=== PATIENT | male | born 1970 | race Caucasian/White ===

== ENCOUNTER 2024-09-21 11:49 | Emergency (ER) | payer BC, SELFPAY ==
[2024-09-21 11:50] VITALS: BP 163/102
[2024-09-21 12:08] LABS: % Basophils 0.4 % (0-2); % Eosinophils 1.2 % (0-6); % Immature Granulocytes 0.4 % (0-0.5); % Lymphocytes 13.7 % (20.5-51.1); % Monocytes 8.3 % (1.7-9.3); Absolute Eosinophils 0.1 10^3/uL (0-0.7); Absolute Lymphocytes 1.2 10^3/uL (1.2-3.4); Absolute Monocytes 0.7 10^3/uL (0.1-0.6); Absolute Neutrophils 6.5 10^3/uL (1.4-6.5); Hematocrit 46.5 % (39.0-52.0); Hemoglobin 15.9 g/dL (13.0-18.0); Mean Corp Hgb Conc. 34.2 g/dL (33.0-37.0); Mean Corpuscular Hgb 32.1 pg (27.0-31.0); Mean Corpuscular Volume 93.8 fL (80.0-94.0); Mean Platelet Volume 10.2 fL (7.4-10.4); Nucleated Red Blood Cells % 0 % (-); Platelet Count 229 10^3/uL (130-400); Red Blood Cell Count 4.96 10^6/uL (4.70-6.10); Red Cell Dist. Width 13.2 % (11.5-14.5); White Blood Cell Count 8.6 10^3/uL (4.8-10.8)
[2024-09-21 12:36] LABS: ALT (SGPT) 28 U/L (0-50); AST (SGOT) 24 U/L (17-59); Albumin 4.5 g/dl (3.5-5.0); Alkaline Phosphatase 37 U/L (38-126); Blood Urea Nitrogen 14 mg/dl (9-20); Calcium 9.1 mg/dl (8.4-10.2); Carbon Dioxide 27 mmol/L (22-30); Chloride 106 mmol/L (98-107); Glucose 91 mg/dl (70-99); Potassium 4.4 mmol/L (3.5-5.1); Sodium 139 mmol/L (135-145); Total Bilirubin 0.8 mg/dl (0.2-1.3); Total Protein 6.9 g/dl (6.3-8.2); eGFR > 60.00
[2024-09-21 12:48] LABS: Troponin I < 0.012 ng/ml
[2024-09-21 13:43] VITALS: BP 143/108
[2024-09-21 15:47] VITALS: BP 136/98
[2024-09-21 16:00] VITALS: BP 145/103
--- NOTE | 2024-09-21 16:27 | ED.GENMED ---
History of Present Illness
General
Chief Complaint: Cardiac Symptoms
Source: patient and family
Exam Limitations: none
Time Seen by Provider: 09/21/24 15:54
Nursing documentation reviewed up to this point in time: agreed with
History of Present Illness
History of Present Illness:
Patient currently on day 5 of Valtrex for possible shingles, presents to ED secondary to continual left thigh pain, which now has spread to multiple joints and muscles. Patient initially had rash noted over left lower back/buttock which now has
resolved. Denies fever or chills. Denies nausea or vomiting. Patient has been taking Tylenol/Motrin with mild relief in symptoms. Of note, patient was admitted to the hospital 5 years ago and treated for bacteremia with multiple abscesses.
Patient states that the pain that he he is having currently, is reminding him of what he experienced back then.
Past History
Past History
ED Past Medical History: Asthma, Other (kidney stones) and Other (Previous migraines)
ED Past Surgical History: None
Social History
Tobacco: Non-smoker
Alcohol: None
Drug: None
Personal:
Living: with family
Employment: Employed
Family History
Family History: Other
Review of Systems
Review of Systems
Allergies reviewed?: Yes
All Other Systems: ROS reviewed and negative except as documented in HPI and ROS
Constitutional: Reports no symptoms; Denies fever or chills
Cardiac: Reports no symptoms
ABD/GI: Reports no symptoms; Denies vomiting or diarrhea
: Reports no symptoms
Musculoskeletal: Reports joint pain and muscle pain
Skin: Reports rash
Neurological: Reports no symptoms; Denies dizzy or weakness
Phy Exam
Physical Exam
Physical Exam:
Physical Exam
General: mild distress, not acutely ill. afebrile
Head: nc/at. eomi
Neck: supple. no meningeal signs.
Heart: s1/s2 regular rate and rhythm
Lungs: no acute respiratory distress. clear bilaterally
Abdomen: normal bowel sounds. not tender.
Neuro: alert and oriented x 3. no focal neurological deficits
Skin: no rash
Psychiatric: well kept. interactive and cooperative
Extremities: no edema. no calf tenderness.
Course
Orders/Labs/Results
Orders:
Orders
09/21/24 11:54
Electrocardiogram (*1) Urgent
Reason for Study: Chest Pain
EKG- Treatment ONCE
CR Chest - 2 Views Urgent
Comment:
Reason For Exam: chest tightness
09/21/24 11:59
Complete Blood Count/With Diff Urgent
Comprehensive Metabolic Panel Urgent
Creatine Phosphokinase Urgent
Comment: ADD ON
Lyme Progressive Urgent
Comment: ADD ON
Magnesium Urgent
Comment: ADD ON
Troponin I Urgent
09/21/24 16:18
Add On- LAB Urgent
Tests Added?: magnesium, CPK, lyme progressive
09/21/24 16:20
0.9% Sodium Chloride 1000 ml [Nss] 1,000 ml IV BOLUS
Ketorolac [Toradol] 15 mg IV NOW STA
09/21/24 16:41
Ehrlichia/Anaplasma by PCR [S] Urgent
Babesia Smear [Blood Parasites] Urgent
POLLY Source: Blood/Venous
Specimen Description:
Blood Culture Q30M
POLLY Source: Blood/Venous
Specimen Description:
Blood Culture Q30M
POLLY Source: Blood/Venous
Specimen Description:
09/21/24 18:01
Amoxicillin [Amoxil] 500 mg PO NOW STA
Abnormal Lab Results
09/21/24
11:59
MCH 32.1 H pg
(27.0-31.0)
Absolute Monos (auto) 0.7 H 10^3/uL
(0.1-0.6)
Neutrophils % 76.0 H %
(42.2-75.2)
Lymphocytes % 13.7 L %
(20.5-51.1)
Alkaline Phosphatase 37 L U/L
(38-126)
09/21/24 11:59
09/21/24 11:59
Vital Signs
Initial and Last Documented VS:
Initial Vital Signs
Temp Pulse Resp BP Pulse Ox
98.5 F 81 16 163/102 98
09/21/24 11:50 09/21/24 11:50 09/21/24 11:50 09/21/24 11:50 09/21/24 11:50
Last Documented Vital Signs
Temp Pulse Resp BP Pulse Ox
98.5 F 67 21 148/101 97
09/21/24 11:50 09/21/24 17:45 09/21/24 17:00 09/21/24 17:00 09/21/24 16:28
MDM/Problems Addressed
MDM/Problems Addressed:
Patient with an unremarkable workup in ED. In addition, patient remains afebrile, hemodynamically stable, and nontoxic-appearing during observation. Patient's presenting symptoms, however, are concerning for potential tickborne illness, i.e. Lyme
disease, with nonspecific rash now having resolved. As such, with patient's progressing symptoms, decision made to start patient on amoxicillin, for potential Lyme disease.
Blood culture and other tickborne illness testing pending, at time of discharge. Patient advised to take ibuprofen/Tylenol for pain control, as well as PCP follow-up. Patient recommended to be return to ED with worsening symptoms, i.e.
fever/worsening pain. Pt agrees with treatment plan
*Pulse Oximetry
SaO2: 97
Oxygen Mode of Delivery: Room air
Patient hypoxic: no
*EKG
Interpreted by ED Provider?: Yes
EKG Intrepretation Date: 09/21/24
Heart Rate: 84
Rate: normal
Rhythm: sinus
Corona: normal axis
*Critical Care Note
Total Time (30-74mins, 75-104mins- exclusive of procedures): Not Applicable
ED Attending Note
-
Portions of this chart may have been created with voice recognition software.� Occasional wrong word or��sound alike� substitutions may have occurred due to the inherent limitations of voice recognition software.
Discharge Plan
Departure
Patient Disposition: Home (Routine Discharge)
Date of Disposition: 09/21/24
Time of Disposition: 18:06
Patient with high blood pressure during this ER visit?: Yes
Discharge Problem:
Myalgia
Instructions: Muscle, joint, and bone pain - Discharge instructions
Prescriptions:
New
amoxicillin 500 mg capsule
500 mg PO Q8H Qty: 41 0RF
No Action
calcium carbonate [Oyster Shell Calcium 500] 500 MG tablet
500 mg PO DAILYPRN PRN (Reason: dehydration)
ibuprofen 200 MG tablet
600 mg PO Q4HPRN PRN (Reason: mild pain,fever)
omega [id number]-fish oil [Fish Oil] 1 EACH capsule
3 ea PO DAILY
tetrahydrozoline [Eye Drops (tetrahydrozoline)] 1 DROP drops
1 drp BOTH EYES DAILYPRN PRN (Reason: eye irritation)
sulfamethoxazole-trimethoprim 1 TABLET tablet
1 tab PO BID Qty: 84 0RF
oxycodone 5 MG tablet
5 mg PO Q4HPRN PRN (Reason: moderate pain) Qty: 60 0RF
ertapenem 1,000 MG/10 ML recon soln
1,000 mg IV Q24H 0RF
Lactobacillus acidoph-L.bulgar [Floranex] 1 EACH tablet
1 ea PO DAILY Qty: 30 0RF
Referrals:
Danielito Hernandez MD [Family Provider, Family Practice]
Activity Restrictions/Additional Instructions:
As discussed, please follow-up with your primary care physician for reevaluation, or return to ED with worsening symptoms. Your prescription has been sent electronically to [facility] pharmacy in [place]
Interventions
Interventions:
*Risk Screen - Suicide Last Done: 09/21/24 15:50
*General Assessment Last Done: 09/21/24 15:50
*Neglect/Abuse Screening Last Done: 09/21/24 15:50
*ED- Fall Risk Assessment Last Done: 09/21/24 15:50
*ED COVID-19 Vaccine History Last Done: 09/21/24 15:50
*Nursing Disposition Last Done: 09/21/24 18:20
ED- Pulmonary Assessment Last Done: 09/21/24 15:50
ED- Cardiac Assessment Last Done: 09/21/24 15:50
Discharge Date and Time
Discharge Date/Time: 09/21/24 18:21
Print Language: INDONESIAN
[2024-09-21] MEDS: NSS 1000 IV (16:43)
[2024-09-21] MEDS: TORADOL 15 MG IV (16:43)
[2024-09-21 16:51] LABS: Creatine Phosphokinase 104 U/L (55-170); Magnesium 2.2 mg/dl (1.6-2.3)
[2024-09-21 17:00] VITALS: BP 148/101
[2024-09-21] MEDS: AMOXIL 500 MG PO (18:15)
[2024-09-22 13:28] LABS: Lyme Antibody Screen, EIA Presump. Positive (Negative)
== END 2024-09-21 18:21 | disposition home or self-care (01) ==
LOC: EMR 11:49
PROVIDERS: Emergency Medicine; EMERGENCY PHYSICIAN Emergency Medicine; FAMILY PHYSICIAN Family Medicine
DX: M79.18 Myalgia, other site (principal); J45.909 Unspecified asthma, uncomplicated
CPT/HCPCS: 96374; 96361; 99284; 71046; 80053; 82550; 83735; 84484; 85025; 86617; 86618; 87015; 87040; 87207; 87468; 87484; 87798; 93005